=== PATIENT | male | born 1990 | race Caucasian/White ===

== ENCOUNTER 2017-12-01 09:03 | Inpatient (IN) | payer OTHER ==
[~2017-12-01] VITALS: Ht 172.7 cm; Wt 86.3 kg
[2017-12-01 09:06] VITALS: Ht 172.7 cm; Wt 86.3 kg
[2017-12-01 09:46] LABS: BASOPHIL % 0.4 % (0-2); PLATELET COUNT 236 x10^3mcL (130-400); RED CELL DISTRIBUTION WIDTH 13.2 % (11.5-14.5)
[2017-12-01 09:56] LABS: CALCIUM 8.7 mg/dL (8.5-10.1); CARBON DIOXIDE 27.7 mmol/L (21-32); CHLORIDE SERUM 104 mmol/L (98-107); GFR1 > 60 mL/min; GLUCOSE SERUM 95 mg/dL (74-106); POTASSIUM SERUM 4.3 mmol/L (3.5-5.1); SODIUM SERUM 139 mmol/L (136-145)
[2017-12-01 10:01] LABS: ALBUMIN 3.7 g/dL (3.4-5.0); ALKALINE PHOSPHATASE 75 U/L (46-116); ALT/SGPT 36 U/L (16-63); AST/SGOT 36 U/L (15-37); BILIRUBIN TOTAL 0.6 mg/dL (0.20-1.00); TOTAL PROTEIN, SERUM 7.8 g/dL (6.4-8.2)
[2017-12-01 10:11] LABS: T3 TOTAL 1.14 ng/mL
[2017-12-01 10:15] LABS: FREE T4 1.09 ng/dL (0.76-1.46)
[2017-12-01 10:56] LABS: AMPHETAMINE QUAL UR NONE DETECTED (See below)
[2017-12-01] MEDS ORDERED: TENORMIN50 MG PO (12:49)
[2017-12-01 13:55] VITALS: BP 106/64
[2017-12-01 14:02] LABS: microscopic required? NO
[2017-12-01 14:11] LABS: urine erythrocyte NEGATIVE (NEGATIVE)
[2017-12-01 14:25] LABS: MAGNESIUM 2.1 mg/dL (1.8-2.4); PHOSPHOROUS 3.8 mg/dL (2.5-4.9)
[2017-12-01 14:37] LABS: CHOLESTEROL/HDL RATIO 5.7
[2017-12-01 20:52] VITALS: BP 112/44
[2017-12-02] VITALS (11 sets, daily range): BP systolic 104–127; BP diastolic 31–54
[2017-12-02 06:37] LABS: BASOPHIL % 0.6 % (0-2); PLATELET COUNT 239 x10^3mcL (130-400); RED CELL DISTRIBUTION WIDTH 13.4 % (11.5-14.5)
[2017-12-02 06:46] LABS: CALCIUM 8.7 mg/dL (8.5-10.1); CARBON DIOXIDE 25.6 mmol/L (21-32); CHLORIDE SERUM 105 mmol/L (98-107); GFR1 > 60 mL/min; GLUCOSE SERUM 93 mg/dL (74-106); MAGNESIUM 2.1 mg/dL (1.8-2.4); POTASSIUM SERUM 4.2 mmol/L (3.5-5.1); SODIUM SERUM 139 mmol/L (136-145)
[2017-12-03 05:49] VITALS: BP 104/49
[2017-12-03 06:29] LABS: BASOPHIL % 0.3 % (0-2); PLATELET COUNT 231 x10^3mcL (130-400); RED CELL DISTRIBUTION WIDTH 13.5 % (11.5-14.5)
[2017-12-03 06:55] LABS: CALCIUM 8.6 mg/dL (8.5-10.1); CARBON DIOXIDE 28.5 mmol/L (21-32); CHLORIDE SERUM 105 mmol/L (98-107); GFR1 > 60 mL/min; GLUCOSE SERUM 93 mg/dL (74-106); MAGNESIUM 2.1 mg/dL (1.8-2.4); PHOSPHOROUS 3.6 mg/dL (2.5-4.9); POTASSIUM SERUM 4.5 mmol/L (3.5-5.1); SODIUM SERUM 139 mmol/L (136-145)
[2017-12-03 08:18] VITALS: BP 106/46
[2017-12-03 12:20] VITALS: BP 108/53
== END 2017-12-03 13:49 | disposition home or self-care (01) | DRG 205 ==
LOC: ED 09:03 → DU 11:44
PROVIDERS: Emergency Medicine; Internal Medicine
DX: I42.1 Obstructive hypertrophic cardiomyopathy (principal); I27.20 Pulmonary hypertension, unspecified; I44.1 Atrioventricular block, second degree; R00.1 Bradycardia, unspecified; R55 Syncope and collapse; I35.1 Nonrheumatic aortic (valve) insufficiency; E78.5 Hyperlipidemia, unspecified; I10 Essential (primary) hypertension; Z68.29 Body mass index [BMI] 29.0-29.9, adult
CPT/HCPCS: 83880; 84439; 90658; Q0092